=== PATIENT | male | born 1980 ===

== ENCOUNTER 2021-04-22 18:47 | Observation (INO) ==
[2021-04-22] MEDS ORDERED: PIPERACILLIN/TAZOBACTAM 3,375 MG in SODIUM CHLORIDE 0.9% 100 ML IV STA ×2 (19:17→19:34)
[2021-04-22] MEDS ORDERED: ACETAMINOPHEN 325 MG TABLET PO PRN (19:22)
[2021-04-22] MEDS ORDERED: ONDANSETRON 4 MG/2 ML VIAL IV PRN (19:22)
[2021-04-22] MEDS: LACTATED RINGERS 1,000 ML IV SCH (19:50)
[2021-04-22] MEDS: HYDROmorphone 2 MG/1 ML VIAL IV PRN (22:44)
[2021-04-23] MEDS: PIPERACILLIN/TAZOBACTAM 3,375 MG in SODIUM CHLORIDE 0.9% 100 ML IV SCH ×3 (02:54→22:19)
[2021-04-23] MEDS: HYDROmorphone 2 MG/1 ML VIAL IV PRN ×4 (05:51→22:26)
[2021-04-23] MEDS ORDERED: LIDOCAINE 1%/EPI INJ 20 ML VIAL ONE (07:08)
[2021-04-23] MEDS ORDERED: TISSUE ADHESIVE 1 EACH APPLICATOR TOP ONE (07:08)
[2021-04-23] MEDS ORDERED: BUPIVACAINE MPF 0.25% 30 ML VIAL ONE (07:08)
[2021-04-23] MEDS ORDERED: SEVOFLURANE 1 UNIT/15 MINUTE INH ONE (08:47)
[2021-04-23] MEDS ORDERED: MIDAZOLAM 2 MG/2 ML VIAL ONE (08:47)
[2021-04-23] MEDS ORDERED: LIDOCAINE 2% 5 ML VIAL ONE (08:47)
[2021-04-23] MEDS ORDERED: SUCCINYLCHOLINE 200 MG/10 ML VIAL ONE (08:47)
[2021-04-23] MEDS ORDERED: fentaNYL 100 MCG/2 ML VIAL ONE (08:47)
[2021-04-23] MEDS ORDERED: propofoL 200 MG/20 ML VIAL IV ONE (08:47)
[2021-04-23] MEDS ORDERED: ONDANSETRON 4 MG/2 ML VIAL ONE ×2 (08:47→10:19)
[2021-04-23] MEDS ORDERED: ROCURONIUM 50 MG/5 ML VIAL IV ONE (08:47)
[2021-04-23] MEDS: LACTATED RINGERS 1,000 ML IV SCH ×3 (09:55→22:18)
[2021-04-23] MEDS ORDERED: ONDANSETRON 4 MG/2 ML VIAL IV PRN (09:57)
[2021-04-23] MEDS ORDERED: LACTATED RINGERS 1,000 ML IV ONE (10:19)
[2021-04-23] MEDS ORDERED: DEXAMETHASONE 4 MG/1 ML VIAL ONE (10:19)
[2021-04-23] MEDS ORDERED: KETOROLAC 30 MG/1 ML VIAL ONE (10:19)
[2021-04-23] MEDS ORDERED: GLYCOPYRROLATE 0.4 MG/2 ML VIAL ONE (10:20)
[2021-04-23] MEDS: PANTOPRAZOLE 40 MG TABLET PO SCH (17:13)
[2021-04-24 05:10] LABS: Basophils % 0.1 % (0.0-0.8); Eosinophils # 0.1 10*3/uL (0.0-0.87); Eosinophils % 0.7 % (0.00-10.9); Hematocrit 37.4 VOL% (42.0-52.0); Hemoglobin 12.6 GM/DL (14.0-18.0); Immature Granulocytes % 0.4 %; Immature Granulocytes Absolute 0.05 #; Lymphocytes % 16.1 % (21.2-54.2); Mean Corpuscular HGB Conc 33.7 GM/DL (32-36); Mean Platelet Volume 8.8 FL (9.6-12.0); Monocytes % 8.2 % (1.7-12.7); Neutrophils % 74.5 % (38.7-73.9); Platelet Count 320 T/CUMM (130-400); Red Blood Count 4.11 MC/CUMM (3.8-5.5); Red Cell Distribution Width 11.9 % (9.3-17.3); White Blood Count 12.1 T/CUMM (4-12)
[2021-04-24] MEDS: PIPERACILLIN/TAZOBACTAM 3,375 MG in SODIUM CHLORIDE 0.9% 100 ML IV SCH (05:11)
[2021-04-24 05:18] LABS: Calcium 8.5 MG/DL (8.5-10.1); Osmolality,Calculated 275.8 MOS/KG (273-304); Potassium 3.5 MMOL/L (3.5-5.1)
[2021-04-24 07:37] VITALS: BP 132/64
[2021-04-24] MEDS ORDERED: hydrALAZINE 10 MG TABLET PO SCH (09:00)
[2021-04-24] MEDS: PANTOPRAZOLE 40 MG TABLET PO SCH (09:32)
[2021-04-24] MEDS: LACTATED RINGERS 1,000 ML IV SCH (09:35)
[2021-04-24] MEDS ORDERED: CEFUROXIME 500 MG TABLET PO SCH (11:00)
== END 2021-04-24 10:57 | disposition home or self-care (01) ==
LOC: EDUNIT# → EDBD → N.ED 18:47 → N.EDINP 18:47 → N.5E 20:51
PROVIDERS: ADMIT Surgery; ATTEND Surgery